=== PATIENT | male | born 1950 | race Two or more races ===

== ENCOUNTER 2019-03-26 12:26 | Emergency (ER) | payer OTHER ==
[~2019-03-26] VITALS: Ht 177.8 cm; Wt 88.5 kg
[2019-03-26] MEDS ORDERED: LOSARTAN POTASS50 MG PO (13:10)
== END 2019-03-26 16:16 | disposition home or self-care (01) ==
LOC: ER 12:26
DX: B34.9 Viral infection, unspecified (principal)